=== PATIENT | male | born 1945 | race Caucasian/White ===

== ENCOUNTER → 2018-11-28 12:31 | Outpatient (CLI) | payer MEDICARE, OTHER, SELFPAY ==
--- NOTE | 2018-11-28 | DI.MRI.S_ITS ---
PROCEDURE: MR SHOULDER LT WO/W CON INDICATIONS: LEFT SHOULDER PAIN TECHNIQUE: Noncontrast oblique coronal T1 spin echo and T2 fast spin echo with fat saturation, oblique sagittal T1 spin echo and T2 fast spin echo with fat saturation, axial T1 spin echo and T2 fast spin echo with fat saturation through the shoulder. Post-contrast oblique coronal, oblique sagittal, and axial T1 spin echo with fat saturation through the shoulder. COMPARISON: None. FINDINGS: Image quality: Excellent. Rotator cuff: There is full-thickness rupture of anterior fibers of distal supraspinatus at its insertion on greater tuberosity of humeral head with minimal 7 to 8mm medial retraction of torn tendon fibers. Moderate articular surface partial-thickness tear involving more posterior fibers of distal supraspinatus is seen extending to the musculotendinous junction. Tendinosis and low-grade articular surface partial-thickness tear involving the infraspinatus is seen. Tendinosis and low-grade intrasubstance partial thickness involving distal subscapularis is also noted. Sagittal images demonsterate very mild supraspinatus muscle atrophy. Bones and bursae: No suspicious bone marrow enhancement. Mild glenohumeral joint osteoarthritis is seen. Widened acromioclavicular joint space with moderate amount of joint fluid is seen. No gross marrow edema. No fracture or dislocation. No gross bone erosive changes. Capsule and soft tissues: No suspicious soft tissue enhancement. In the absence of intra-articular contrast, the labrum and glenohumeral ligaments appear intact. The long head of the biceps tendon demonstrates normal location and morphology. The rotator interval appears normal, without fibrosis. The coracohumeral ligament is normal in thickness. IMPRESSION: 1. Full-thickness rupture of the anterior fibers of distal supraspinatus at its insertion on the greater tuberosity with minimal 7 to 8mm medial retraction of torn tendon fibers. Moderate grade articular surface partial thickness involving more posterior fibers of distal supraspinatus. Tendinosis and low-grade articular surface partial-thickness tear involving the supraspinatus. Tendinosis and low-grade intrasubstance partial-thickness tear involving distal subscapularis. Very mild supraspinatus muscle atrophy. 2. Slightly widened acromioclavicular joint space with moderate amount of joint effusion, no fracture or dislocation. No intra-articular loose body. No bony erosive changes. Finding may represent prior surgery in this area suggest clinical correlation. Mild glenohumeral joint osteoarthritis is seen. 3. No gross focal labral tear. Dictated by: Kyle Long M.D. on 11/28/2018 at 15:52 Approved by: Kyle Long M.D. on 11/28/2018 at 16:21
== END ==
PROVIDERS: Family Provider Family Medicine; PCP Family Medicine; Visit Provider Family Medicine
DX: M25.512 Pain in left shoulder (principal)
CPT/HCPCS: 73223; A9579

== ENCOUNTER → 2019-11-10 13:48 | Outpatient (CLI) | payer MEDICARE, OTHER, SELFPAY ==
--- NOTE | 2019-11-10 13:51 | DI.MRI.S_ITS ---
PROCEDURE: MR HEAD/BRAIN WO/W CON INDICATIONS: Hx of multiple concussions, now possible CTE TECHNIQUE: Noncontrast axial T1 spin echo, axial T2 fast spin echo, sagittal and axial FLAIR, coronal T2 fast spin echo, axial gradient echo, axial diffusion and ADC through the brain. After the administration of contrast, axial and coronal 3D VIBE or T1 spin echo with fat saturation through the brain. COMPARISON: None. FINDINGS: Image quality: Excellent. CSF Spaces: Basal cisterns are patent. No extra-axial fluid collections. Ventricles are normal in size and shape. Brain: No midline shift. No intracranial bleeds or masses. No abnormal intracranial enhancement. The brainstem appears normal. Diffusion-weighted images demonstrate no acute ischemic insults. Chronic right temporal infarcts with surrounding gliosis are noted. There is [id number] diffuse cerebral and loss. There are mild periventricular and subcortical white matter chronic microvascular ischemic changes. Normal intravascular flow voids are present. Skull and face: Calvarial marrow is normal in signal. Orbits appear normal. Sinuses: Sinuses and mastoids appear clear. IMPRESSION: 1. No acute intracranial disease process. 2. No areas of acute infarction. 3. Chronic right temporal infarcts with surrounding gliosis. 4. Mild to moderate diffuse cerebral volume loss. 5. Mild periventricular and subcortical white matter chronic microvascular ischemic changes. 6. No suspicious postcontrast enhancement. Dictated by: Dayami Hermosillo MD, PhD on 11/10/2019 at 17:13 Approved by: Dayami Hermosillo MD, PhD on 11/10/2019 at 17:18
== END ==
PROVIDERS: PCP Family Medicine; Visit Provider Psychiatry & Neurology Psychiatry
DX: F07.81 Postconcussional syndrome (principal); E11.9 Type 2 diabetes mellitus without complications; G93.89 Other specified disorders of brain; I63.9 Cerebral infarction, unspecified; F31.81 Bipolar II disorder; F90.0 Attention-deficit hyperactivity disorder, predominantly inattentive type
CPT/HCPCS: 70553; A9579

== ENCOUNTER → 2020-01-05 07:50 | Outpatient (CLI) | payer MEDICARE, OTHER, SELFPAY ==
[2020-01-05 08:40] LABS: Ur Creatinine Normal (Normal); Ur Specific Gravity Normal (Normal); Urine pH Normal (Normal)
[2020-01-05 08:41] LABS: UR Morphine/Opiate cutoff 300 Negative (Negative); Urine Amphetamines Negative (Negative); Urine Barbiturates Negative (Negative); Urine Benzodiazepines Negative (Negative); Urine Cocaine Negative (Negative); Urine MDMA Negative (Negative); Urine Methadone Negative (Negative); Urine Methamphetamines Negative (Negative); Urine Oxycodone Negative (Negative); Urine Phencyclidine Negative (Negative); Urine Tetrahydrocannabinol Negative (Negative); Urine Tricyclic Antidepressant Positive (Negative)
[2020-01-05 09:33] LABS: Add Manual Diff / Slide Review NO; Basophils Absolute Auto 100 /uL (0-100); Basophils Percent Auto 1.1 % (0-2); Eosinophils Absolute Auto 400 /uL (0-450); Eosinophils Percent Auto 6.7 % (2-4); Hematocrit 45.3 % (41-53); Hemoglobin 15.4 g/dL (13.5-17.5); Lymphocytes Absolute Auto 1900 /uL (1100-4500); Mean Corpuscular HGB Conc 34.1 % (30-36); Mean Corpuscular Hemoglobin 34.3 PG (26-34); Mean Corpuscular Volume 100.8 fL (80-100); Monocytes Absolute Auto 1200 /uL (0-900); Monocytes Percent Auto 18.1 % (3-14); Neutrophils Absolute Auto 2900 /uL (1500-7000); Neutrophils Percent Auto 45.1 % (50-75); Platelet Count 240 X10^3/uL (150-400); Red Cell Distribution Width 13.2 % (11.6-14.8); White Blood Cell Count 6.4 X10^3/uL (4.5-11.0)
[2020-01-05 09:40] LABS: Alanine Aminotransferase 20 IU/L (<50); Albumin 4.3 g/dL (3.5-5.0); Albumin Globulin Ratio 1.3 (1.0-2.8); Alkaline Phosphatase 89 U/L (38-126); Aspartate Aminotransferase 23 IU/L (17-59); BUN Creatinine Ratio 14.7 (6-22); Bilirubin Total 0.4 mg/dL (0.2-1.3); Blood Urea Nitrogen 22 mg/dL (9-20); Calcium 9.1 mg/dL (8.4-10.2); Carbon Dioxide 22 mmol/L (22-32); Chloride 108 mmol/L (98-107); Estimated Glomerular Filt Rate 45.7 mL/min (>60); Globulin 3.3 g/dL (1.7-4.1); Glucose 102 mg/dL (80-110); HEMOLYSIS 20 (0-50); Potassium 4.6 mmol/L (3.4-5.1); Sodium 141 mmol/L (137-145); Total Protein 7.6 g/dL (6.3-8.2)
[2020-01-05 10:01] LABS: Hemoglobin A1C% w Est Avg Glu 6.2 % (4.0-6.0)
[2020-01-05 10:43] LABS: Free T4, Direct Thyroxine 0.87 ng/dL (0.78-2.19)
[2020-01-05 10:57] LABS: Thyroid Stimulating Hormone 3.07 uIU/mL (0.47-4.68)
[2020-01-09 14:58] LABS: Valproic Acid (Depakene) Total 18.9 mg/L (50.0-100.0)
== END ==
PROVIDERS: PCP Family Medicine; Referring Provider Psychiatry & Neurology Psychiatry; Visit Provider Psychiatry & Neurology Psychiatry
DX: E11.9 Type 2 diabetes mellitus without complications (principal); F07.81 Postconcussional syndrome; F31.81 Bipolar II disorder; F90.0 Attention-deficit hyperactivity disorder, predominantly inattentive type
CPT/HCPCS: 80053; 80164; 80305; 83036; 84439; 84443; 85025

== ENCOUNTER 2020-04-05 12:28 | Emergency (ER) | payer MEDICARE, OTHER, SELFPAY ==
[2020-04-05 12:30] VITALS: BP 198/96; PULSE 81; RESP 14; TEMP 36.2; O2SAT 98; BMI 32.3
--- NOTE | 2020-04-05 12:39 | PC.NURSE ---
calm , cooperative and appropriate with care, with good eye contact, skin warm dry pink, moving all ext well. son at bs.
--- NOTE | 2020-04-05 13:08 | DI.MRI.S_ITS ---
PROCEDURE: MR HEAD/BRAIN WO/W CON INDICATIONS: Altered mental status TECHNIQUE: Noncontrast axial T1 spin echo, axial T2 fast spin echo, sagittal and axial FLAIR, coronal T2 fast spin echo, axial gradient echo, axial diffusion and ADC through the brain. After the administration of contrast, axial and coronal T1 spin echo with fat saturation through the brain. COMPARISON: [facility], , MR HEAD/BRAIN WO/W CON, 11/10/2019, 14:07. FINDINGS: Image quality: There is susceptibility artifact related to the patient's dental work.3 CSF spaces: Basal cisterns are patent. No extra-axial fluid collections. Ventricles are stable in size and shape, with mild ex vacuo dilatation seen of the temporal horn of the right lateral ventricle. Brain: No midline shift. No intracranial bleeds or masses. No abnormal intracranial enhancement. There is cerebral volume loss for age. There is periventricular white matter chronic small vessel ischemic change. The brainstem appears normal. Diffusion-weighted images demonstrate no acute ischemic insults. Remote infarctions are seen involving the right temporal lobe, with volume loss and gliotic change. Normal intravascular flow voids are present. Skull and face: Calvarial marrow is normal in signal. Orbits appear normal. Sinuses: Sinuses and mastoids appear clear. IMPRESSION: No findings of acute or subacute infarction can be seen. Stable right temporal lobe infarction, with associated volume loss, gliotic change, and ex vacuo dilatation of the temporal horn of the right lateral ventricle. Note is made of age-appropriate brain parenchymal volume loss and chronic small vessel ischemic changes. No masses or abnormal enhancement can be seen. Dictated by: Alok Oconnell M.D. on 04/05/2020 at 13:35 Approved by: Alok Oconnell M.D. on 04/05/2020 at 13:37
[2020-04-05 13:17] LABS: Add Manual Diff / Slide Review NO; Basophils Absolute Auto 0 /uL (0-100); Basophils Percent Auto 0.6 % (0-2); Eosinophils Absolute Auto 200 /uL (0-450); Eosinophils Percent Auto 3.1 % (2-4); Hematocrit 47.6 % (41-53); Hemoglobin 16.3 g/dL (13.5-17.5); Lymphocytes Absolute Auto 1500 /uL (1100-4500); Mean Corpuscular HGB Conc 34.3 % (30-36); Mean Corpuscular Hemoglobin 34.3 PG (26-34); Monocytes Absolute Auto 1200 /uL (0-900); Monocytes Percent Auto 17.3 % (3-14); Neutrophils Absolute Auto 3900 /uL (1500-7000); Platelet Count 204 X10^3/uL (150-400); Red Blood Cell Count 4.76 X10^6/uL (4.5-5.9); Red Cell Distribution Width 13.4 % (11.6-14.8); White Blood Cell Count 6.9 X10^3/uL (4.5-11.0)
--- NOTE | 2020-04-05 13:25 | ED_ITS ---
HPI - Altered Mental Status General Chief Complaint: Altered Mental Status Stated Complaint: Mental status changes Time Seen by Provider: 04/05/20 12:36 Source: patient, family (Son) and other (Patient's psychiatrist Dr. payne) Mode of arrival: Ambulatory Limitations: no limitations History of Present Illness HPI narrative: Patient brought in by his psychiatrist from the office Dr. Payne, accompanied by his son, due to rapid altered mental status in the past 2 months. Patient has been combative and very volatile. At times patient states he wants to harm himself by driving a truck off a bridge. Other times he says he does not want hurt himself. He has had auditory hallucinations hearing men's voices in a quartet. There is no radio on. No visual hallucinations. Past history of bipolar disease. Patient has recently been alternating being compliant to noncompliance. At this time he has stated he has had thoughts of driving his truck off a bridge. Suicide watch orders implemented. I spoke with Dr. Payne, if patient needs medication for anxiety or agitation then use Haldol with Ativan. Dr. payne and son desired patient to be admitted to a Neurogeripsych facility Related Data Home Medications Medication Instructions Recorded Confirmed gemfibrozil 600 mg PO BIDAC #0 12/23/17 04/05/20 glipizide [Glucotrol XL] 2.5 mg PO QDAY #0 12/23/17 04/05/20 cholecalciferol (vitamin D3) 25 9,000 unit PO QWEEK cap 12/03/19 04/05/20 mcg (1,000 unit) capsule imipramine pamoate 100 mg capsule 100 mg PO BEDTIME #0 cap 12/03/19 04/05/20 losartan 100 mg tablet 100 mg PO DAILY #0 tab 12/03/19 04/05/20 prazosin 1 mg capsule 1 mg PO BEDTIME #0 cap 12/03/19 04/05/20 Previous Rx's Medication Instructions Recorded divalproex 500 mg tablet,extended 1,000 mg PO DAILY #60 tab 02/02/20 release 24 hr gabapentin 300 mg capsule 300 mg PO TID #90 cap 02/02/20 Allergies Allergy/AdvReac Type Severity Reaction Status Date / Time shellfish derived Allergy Unknown Verified 04/05/20 12:40 [SHELLFISH DERIVED] Review of Systems Review of Systems Narrative: GENERAL: Denies chills, fatigue, malaise, fever, sweats. HEENT: Denies sinus pain, ear pain, sore throat, difficulty swallowing, dizziness. RESPIRATORY: Denies dyspnea, cough, wheezing, hemoptysis, sputum. CARDIOVASCULAR: Denies chest pain, palpitations, orthopnea, edema, GASTROINTESTINAL: Denies nausea, vomiting, abdominal pain, diarrhea, constipation, melena. : Denies dysuria, frequency, incontinence, hematuria, urinary retention. MUSCULOSKELETAL: denies weakness, joint pain, or bony pain SKIN: Denies rash, skin lesions, or other NEUROLOGIC: Denies weakness, headache, numbness, change in speech, confusion, seizures, incoordination. PSYCHIATRIC: has agitation/anxiety/delusions/auditory hallucinations ROS Unobtainable: All systems reviewed & are unremarkable except as noted in HPI and below Patient History Medical History ADHD (attention deficit hyperactivity disorder), inattentive type (Acute) Bipolar II disorder with atypical features (Acute) CTE (chronic traumatic encephalopathy) (Acute) Diabetes mellitus type 2 in nonobese (Acute) Hypertension (Acute) Posttraumatic stress disorder with delayed expression (Acute) Social History Smoking Status: Never smoker Smoking Status: Never smoker Exam Narrative Exam Narrative: GENERAL: patient appears stated age. Well-nourished, well- developed patient, in no distress, not toxic HEAD: Atraumatic. Normocephalic. EYES: Pupils equal round and reactive. Extraocular motions intact. No scleral icterus. No injection or drainage. ENT: Nose without bleeding, purulent drainage. Throat without erythema, tonsillar hypertrophy or exudate. Airway patent. NECK: Trachea midline. Non tender CARDIOVASCULAR: Regular rate and rhythm without murmurs, gallops, or rubs. RESPIRATORY: Clear to auscultation. Breath sounds equal bilaterally. No wheezes, rales, or rhonchi. GASTROINTESTINAL: Abdomen soft, non-tender, nondistended. EXTREMITIES: No edema or joint tenderness. BACK: Nontender without deformity or crepitance. No flank tenderness. NEURO: AOx3. Clear speech no facial droop. Steady suffocating hallway no ataxia. Strong equal tower attendant. SKIN: No rash or erythema of visible areas Mental exam... Patient is awake alert oriented x4. Patient is cooperative and not combative. No active auditory or visual hallucinations. Does state he would hurt himself by driving over bridge with his truck. Denies any thoughts of hurting others. Initial Vital Signs Initial Vital Signs: Vital Signs Temperature 97.2 F L 04/05/20 12:30 Pulse Rate 81 04/05/20 12:30 Respiratory Rate 14 04/05/20 12:30 Blood Pressure 198/96 H 04/05/20 12:30 Pulse Oximetry 98 04/05/20 12:30 Course Course Course Narrative: Time 6:05 p.m.. The sign-out Dr. Gonzalez,,, dispo pending social Work finding placement for patient. Patient is on suicide watch. Son is at bedside and has been very helpful with patient being less anxious. Orders Ordered: ED Orders 04/05/20 12:41 Urinalysis and Microscopic Stat Urine Drug Screen, Rapid Stat 04/05/20 12:59 EKG-12 Lead Stat 04/05/20 13:00 Consult to [facility] - Material Spreader Urgent Acetaminophen Stat Complete Blood Count AUTO DIFF Stat Comprehensive Metabolic Panel Stat Ethanol (ETOH) Stat Salicylate Stat Thyroid Stimulating Hormone Stat 04/05/20 13:08 MR head/brain wo/w con Stat 04/05/20 14:20 Valproic Acid (Depakene) Total Stat Consultations Consultation #1: [employer] INSPECTOR janiya here for eval of pt Vital Signs Vital signs: Vital Signs - 8 hr 04/05/20 12:30 04/05/20 14:18 Temperature 97.2 F L Pulse Rate 81 78 Respiratory Rate 14 16 Blood Pressure 198/96 H Blood Pressure [Left Arm] 159/88 H Pulse Oximetry 98 99 MDM - Altered Mental Status Differential Diagnosis Differential diagnosis: Likely altered mental status, delirium and dementia Lab Data Result diagrams: 04/05/20 13:00 04/05/20 13:00 Labs: Lab Results 04/05/20 04/05/20 04/05/20 Range/Units 12:41 12:41 13:00 WBC 6.9 (4.5-11.0) X10^3/uL RBC 4.76 (4.5-5.9) X10^6/uL Hgb 16.3 (13.5-17.5) g/dL Hct 47.6 (41-53) % MCV 100.0 (80-100) fL MCH 34.3 H (26-34) PG MCHC 34.3 (30-36) % RDW 13.4 (11.6-14.8) % Plt Count 204 (150-400) X10^3/uL Neut % (Auto) 57.0 (50-75) % Lymph % (Auto) 22.0 L (25-40) % [place] % (Auto) 17.3 H (3-14) % Eos % (Auto) 3.1 (2-4) % Baso % (Auto) 0.6 (0-2) % Neut # (Auto) 3900 (2812-6058) /uL Lymph # (Auto) 1500 (7153-0515) /uL [place] # (Auto) 1200 H (0-900) /uL Eos # (Auto) 200 (0-450) /uL Baso # (Auto) 0 (0-100) /uL Sodium (137-145) mmol/L Potassium Chloride (98-107) mmol/L Carbon Dioxide (22-32) mmol/L BUN (9-20) mg/dL Creatinine (0.66-1.25) mg/dL Estimated GFR (>60) mL/min BUN/Creatinine Ratio (6-22) Glucose (80-110) mg/dL Calcium (8.4-10.2) mg/dL Total Bilirubin (0.2-1.3) mg/dL AST (17-59) IU/L ALT (<50) IU/L Alkaline Phosphatase (38-126) U/L Total Protein (6.3-8.2) g/dL Albumin (3.5-5.0) g/dL Globulin (1.7-4.1) g/dL Albumin/Globulin Ratio (1.0-2.8) TSH (0.47-4.68) uIU/mL Urine Color Yellow Urine Appearance Clear Urine pH 6.5 (4.5-8.0) Ur Specific [place] 1.020 (1.000-1.035) Urine Protein Trace H (Negative) Urine Glucose (UA) Negative (Negative) g/dL Urine Ketones Trace H (NEGATIVE) Urine Occult Blood Negative (Negative) Urine Nitrate Negative (Negative) Urine Bilirubin Negative (NEGATIVE) Urine Urobilinogen 0.2 (0.2) E.U./dL Ur Leukocyte Esterase Negative (NEGATIVE) Urine RBC None seen (0-5/HPF) Urine WBC None seen (0-5/HPF) Urine Bacteria None seen (None) Ur Culture Indicated? Cult not indicated Micro UA Comment Microscopic normal Salicylates (<20) mg/dL U Opiates 300ng/mL cut Negative (Negative) Ur Oxycodone Screen Negative (Negative) Urine Methadone Screen Negative (Negative) Acetaminophen (10-30) ug/mL Ur Barbiturates Screen Negative (Negative) U Tricyclic Antidepress Positive H (Negative) Ur Phencyclidine Scrn Negative (Negative) Ur Amphetamines Screen Negative (Negative) U Methamphetamines Scrn Negative (Negative) Ur MDMA Scrn (Ecstasy) Negative (Negative) U Benzodiazepines Scrn Negative (Negative) Urine Cocaine Screen Negative (Negative) U Marijuana (THC) Screen Negative (Negative) Ethyl Alcohol ( - 10) mg/dL 04/05/20 04/05/20 Range/Units 13:00 13:00 WBC (4.5-11.0) X10^3/uL RBC (4.5-5.9) X10^6/uL Hgb (13.5-17.5) g/dL Hct (41-53) % MCV (80-100) fL MCH (26-34) PG MCHC (30-36) % RDW (11.6-14.8) % Plt Count (150-400) X10^3/uL Neut % (Auto) (50-75) % Lymph % (Auto) (25-40) % [place] % (Auto) (3-14) % Eos % (Auto) (2-4) % Baso % (Auto) (0-2) % Neut # (Auto) (4958-8148) /uL Lymph # (Auto) (3928-8703) /uL [place] # (Auto) (0-900) /uL Eos # (Auto) (0-450) /uL Baso # (Auto) (0-100) /uL Sodium 139 (137-145) mmol/L Potassium TNP Chloride 108 H (98-107) mmol/L Carbon Dioxide 19 L (22-32) mmol/L BUN 28 H (9-20) mg/dL Creatinine 1.50 H (0.66-1.25) mg/dL Estimated GFR 45.7 L (>60) mL/min BUN/Creatinine Ratio 18.7 (6-22) Glucose 82 (80-110) mg/dL Calcium 9.3 (8.4-10.2) mg/dL Total Bilirubin 0.8 (0.2-1.3) mg/dL AST 52 (17-59) IU/L ALT 53 H (<50) IU/L Alkaline Phosphatase 87 (38-126) U/L Total Protein 8.1 (6.3-8.2) g/dL Albumin 4.5 (3.5-5.0) g/dL Globulin 3.6 (1.7-4.1) g/dL Albumin/Globulin Ratio 1.3 (1.0-2.8) TSH 0.58 (0.47-4.68) uIU/mL Urine Color Urine Appearance Urine pH (4.5-8.0) Ur Specific [place] (1.000-1.035) Urine Protein (Negative) Urine Glucose (UA) (Negative) g/dL Urine Ketones (NEGATIVE) Urine Occult Blood (Negative) Urine Nitrate (Negative) Urine Bilirubin (NEGATIVE) Urine Urobilinogen (0.2) E.U./dL Ur Leukocyte Esterase (NEGATIVE) Urine RBC (0-5/HPF) Urine WBC (0-5/HPF) Urine Bacteria (None) Ur Culture Indicated? Micro UA Comment Salicylates < 1.0 (<20) mg/dL U Opiates 300ng/mL cut (Negative) Ur Oxycodone Screen (Negative) Urine Methadone Screen (Negative) Acetaminophen < 10 L (10-30) ug/mL Ur Barbiturates Screen (Negative) U Tricyclic Antidepress (Negative) Ur Phencyclidine Scrn (Negative) Ur Amphetamines Screen (Negative) U Methamphetamines Scrn (Negative) Ur MDMA Scrn (Ecstasy) (Negative) U Benzodiazepines Scrn (Negative) Urine Cocaine Screen (Negative) U Marijuana (THC) Screen (Negative) Ethyl Alcohol < 10 ( - 10) mg/dL Imaging Data MRI brain: Radiologist's Impression: [address] [address] Magnetic Resonance Report Signed Patient: Zen Aguayo [facility]#: [id number] : 5Acct:[id number] Age/Sex: 74 / MDate of Service: 04/05/20 Loc: ED Accession Number: [id number] Procedure: MR head/brain wo/w con Ordering Provider: Everardo Ortiz MD PROCEDURE: MR HEAD/BRAIN WO/W CON INDICATIONS: Altered mental status TECHNIQUE: Noncontrast axial T1 spin echo, axial T2 fast spin echo, sagittal and axial FLAIR, coronal T2 fast spin echo, axial gradient echo, axial diffusion and ADC through the brain. After the administration of contrast, axial and coronal T1 spin echo with fat saturation through the brain. COMPARISON: [facility], MR, MR HEAD/BRAIN WO/W CON, 11/10/2019, 14:07. FINDINGS: Image quality: There is susceptibility artifact related to the patient's dental work.3 CSF spaces: Basal cisterns are patent. No extra-axial fluid collections. Ventricles are stable in size and shape, with mild ex vacuo dilatation seen of the temporal horn of the right lateral ventricle. Brain: No midline shift. No intracranial bleeds or masses. No abnormal int racranial enhancement. There is cerebral volume loss for age. There is periventricular white matter chronic small vessel ischemic change. The brainstem appears normal. Diffusion-weighted images demonstrate no acute ischemic insults. Remote infarctions are seen involving the right temporal lobe, with volume loss and gliotic change. Normal intravascular flow voids are present. Skull and face: Calvarial marrow is normal in signal. Orbits appear normal. Sinuses: Sinuses and mastoids appear clear. IMPRESSION: No findings of acute or subacute infarction can be seen. Stable right temporal lobe infarction, with associated volume loss, gliotic change, and ex vacuo dilatation of the temporal horn of the right lateral ventricle. Note is made of age-appropriate brain parenchymal volume loss and chronic small vessel ischemic changes. No masses or abnormal enhancement can be seen. Dictated by: Alok Oconnell M.D. on 04/05/2020 at 13:35 Approved by: Alok Oconnell M.D. on 04/05/2020 at 13:37 ECG Data Attestation: I personally reviewed and interpreted this ECG as follows: Interpretation: Time 1:23 p.m.. Sinus rhythm, first-degree AV block, vent ricular rate 81 Discharge Plan Departure Clinical Impression: Acute on chronic alteration in mental status Prescriptions: No Action cholecalciferol (vitamin D3) 1,000 unit capsule 9,000 unit PO QWEEK RF: 0 divalproex 500 mg tablet extended release 24 hr 1,000 mg PO DAILY Qty: 60 RF: 5 gabapentin [Neurontin] 300 mg capsule 300 mg PO TID Qty: 90 RF: 5 gemfibrozil 600 MG tablet 600 mg PO BIDAC Qty: 0 RF: 0 glipizide [Glucotrol XL] 2.5 MG tablet extended release 24hr 2.5 mg PO QDAY Qty: 0 RF: 0 imipramine pamoate 100 mg capsule 100 mg PO BEDTIME Qty: 0 RF: 0 losartan [Cozaar] 100 mg tablet 100 mg PO DAILY Qty: 0 RF: 0 prazosin [Minipress] 1 mg capsule 1 mg PO BEDTIME Qty: 0 RF: 0 Referrals: Buddy Cook DO [Primary Care Provider] -
[2020-04-05 13:29] LABS: Acetaminophen < 10 ug/mL (10-30); Alanine Aminotransferase 53 IU/L (<50); Albumin 4.5 g/dL (3.5-5.0); Albumin Globulin Ratio 1.3 (1.0-2.8); Alkaline Phosphatase 87 U/L (38-126); Aspartate Aminotransferase 52 IU/L (17-59); BUN Creatinine Ratio 18.7 (6-22); Bilirubin Total 0.8 mg/dL (0.2-1.3); Blood Urea Nitrogen 28 mg/dL (9-20); Calcium 9.3 mg/dL (8.4-10.2); Carbon Dioxide 19 mmol/L (22-32); Chloride 108 mmol/L (98-107); Estimated Glomerular Filt Rate 45.7 mL/min (>60); Ethanol (ETOH) < 10 mg/dL; Globulin 3.6 g/dL (1.7-4.1); Glucose 82 mg/dL (80-110); Salicylate < 1.0 mg/dL (<20); Sodium 139 mmol/L (137-145); Total Protein 8.1 g/dL (6.3-8.2)
[2020-04-05 13:30] LABS: HEMOLYSIS 111 (0-50)
[2020-04-05 14:00] LABS: Thyroid Stimulating Hormone 0.58 uIU/mL (0.47-4.68)
[2020-04-05 14:00] LABS: Bacteria Urine None Seen; RBC Urine None Seen (0-5/HPF); WBC Urine None Seen (0-5/HPF)
[2020-04-05 14:02] LABS: Appearance Urine UA CLEAR; Bilirubin Urine UA NEGATIVE (NEGATIVE); Color Urine UA YELLOW; Glucose Urine UA NEGATIVE (Negative); Ketones Urine UA TRACE (NEGATIVE); Leukocyte Esterase Urine UA NEGATIVE (NEGATIVE); Nitrite Urine UA NEGATIVE (Negative); Occult Blood Urine UA NEGATIVE (Negative); Protein Urine UA TRACE (Negative); Urobilinogen Urine UA 0.2 E.U./dL (0.2); pH Urine UA 6.5 (4.5-8.0)
[2020-04-05 14:06] LABS: UR Morphine/Opiate cutoff 300 Negative (Negative); Ur Creatinine Normal (Normal); Ur Specific Gravity Normal (Normal); Urine Amphetamines Negative (Negative); Urine Barbiturates Negative (Negative); Urine Benzodiazepines Negative (Negative); Urine Cocaine Negative (Negative); Urine MDMA Negative (Negative); Urine Methadone Negative (Negative); Urine Methamphetamines Negative (Negative); Urine Oxycodone Negative (Negative); Urine Phencyclidine Negative (Negative); Urine Tetrahydrocannabinol Negative (Negative); Urine Tricyclic Antidepressant Positive (Negative); Urine pH Normal (Normal)
[2020-04-05 14:07] LABS: Culture Indicated Urine Cult Not Indicated; Urine Comments Microscopic Normal
[2020-04-05 14:18] VITALS: BP 159/88; PULSE 78; RESP 16; O2SAT 99
--- NOTE | 2020-04-05 15:37 | CM.SWNOTE ---
ROADS SUPERINTENDENT note ROADS SUPERINTENDENT staffed patient with Dr. Ortiz. ROADS SUPERINTENDENT attempted to contact Dr. Hutchinson, patient's psychiatrist to gain better understanding of background and current situation. Left message with dental office receptionist. ANTONIO Nam
--- NOTE | 2020-04-05 18:16 | CM.SWNOTE ---
ANAESTHESIOLOGIST note ANAESTHESIOLOGIST meets with patient in room. ANAESTHESIOLOGIST consults with Dr. Hutchinson, who recommends behavioral health hospitalization. Patient's son is in waiting room and ANAESTHESIOLOGIST asks patient for permission to speak with patient's son. Patient gives verbal consent for ANAESTHESIOLOGIST to speak with son. Patient's son discusses a significant change in patient's behavior over the past week and states significant concern for safety of patient and of patient's , and provides several examples (see assessment). Patient's son believes that his father is unsafe to be released home. ANAESTHESIOLOGIST staffs with Dr. Ortiz and Dr. Hutchinson and all express agreement that patient is currently unsafe for release to home. ANAESTHESIOLOGIST will discuss with patient and begin persuing hospitalization for geriatric psych hospitalization. ANTONIO Nam
--- NOTE | 2020-04-05 18:42 | CM.SWNOTE ---
OUTSIDE MACHINIST SUPERVISOR note OUTSIDE MACHINIST SUPERVISOR enters room to talk with patient. OUTSIDE MACHINIST SUPERVISOR explains that it is the belief of OUTSIDE MACHINIST SUPERVISOR that patient is not safe for discharge home, and that the recommendation is for inpatient behavioral health hospitalization for patient. After stating this, patient tells OUTSIDE MACHINIST SUPERVISOR you can leave now. OUTSIDE MACHINIST SUPERVISOR reiterates recommendation and explains that the hospital is not located here, and asks specifically if patient is willing to voluntarily accept treatment. Patient says anything can happen. OUTSIDE MACHINIST SUPERVISOR informs patient that, should he be unwilling to accept voluntary placement, he will be considered involuntary, unable to leave, and will have to meet with a DCR. Patient states he does not give consent to OUTSIDE MACHINIST SUPERVISOR. OUTSIDE MACHINIST SUPERVISOR informs patient that his stay is now considered involuntary, and informs RN and Dr. Gonzalez of current involuntary status. OUTSIDE MACHINIST SUPERVISOR will call DCR and follow up with patient's and son following conversation to inform of current status. ANTONIO Nam
[2020-04-05 18:43] VITALS: BP 170/78; PULSE 78; RESP 16; O2SAT 99
--- NOTE | 2020-04-05 18:58 | CM.SWNOTE ---
PHOTO BOOTH OPERATOR note PHOTO BOOTH OPERATOR contacts patient's . PHOTO BOOTH OPERATOR reviews conversations with patient and patient's son with patient's , and informs patient's of patient's involuntary status. Patient's says thank you when PHOTO BOOTH OPERATOR informs patient's that PHOTO BOOTH OPERATOR's opinion is that patient is not safe for discharge home. PHOTO BOOTH OPERATOR explained process of Involuntary hold for patient, and patient's said she called her workers compensation defense attorney and was told she had medical and mental DPOA for patient. PHOTO BOOTH OPERATOR informed patient that he would consult with DCR to see how that impacted process and that DCR and or PHOTO BOOTH OPERATOR would follow up with patient's regarding next steps. plan: PHOTO BOOTH OPERATOR to contact [facility] to request DCR consult. ANTONIO Nam
--- NOTE | 2020-04-05 19:25 | CM.SWNOTE ---
RACING DRIVER note RACING DRIVER calls [facility] crisis line and speaks with Olman to start assessment process. RACING DRIVER gives [facility] information requested and [facility] requests attestation form be sent before proceeding to next step. RACING DRIVER obtained signature from Dr. Gonzalez on attestation form and faxed to A. RACING DRIVER will wait for DCR consult. ANTONIO Nam
--- NOTE | 2020-04-05 19:34 | PC.NURSE ---
Kyle Cedeño on pt bankruptcy paralegal watch @19:30
--- NOTE | 2020-04-05 20:37 | CM.SWNOTE ---
INVESTIGATOR UTILITY BILL COMPLAINTS note DYLAN Simms called INVESTIGATOR UTILITY BILL COMPLAINTS and INVESTIGATOR UTILITY BILL COMPLAINTS returned call. INVESTIGATOR UTILITY BILL COMPLAINTS and DCR discussed patient and INVESTIGATOR UTILITY BILL COMPLAINTS requested clinical packet with contact information for patient's and son. INVESTIGATOR UTILITY BILL COMPLAINTS assembled packet and faxed to DCR. DYLAN Simms phone: [phone]; fax: [phone]. INVESTIGATOR UTILITY BILL COMPLAINTS will await return call from DCR to discuss next steps.
[2020-04-05 21:05] VITALS: BP 181/88; PULSE 78; RESP 16; O2SAT 95
[2020-04-05] MEDS: DIVALPROEX ER 250 MG TAB 500 MG PO (21:08)
[2020-04-05] MEDS: PRAZOSIN 1 MG CAPSULE PO (21:08)
[2020-04-05] MEDS: GABAPENTIN 300 MG CAPSULE PO (21:08)
[2020-04-05] MEDS: IMIPRAMINE HCL 25 MG TABLET 100 MG PO (21:09)
--- NOTE | 2020-04-05 21:48 | PC.NURSE ---
Prt speaking with DCR via Tablet.
--- NOTE | 2020-04-05 21:58 | CM.SWNOTE ---
COUNTY DEMONSTRATOR note COUNTY DEMONSTRATOR called DCR and coordinated Zoom meeting. COUNTY DEMONSTRATOR brought iPad to patient and patient and DCR completed meeting. COUNTY DEMONSTRATOR retrieved iPad when finished. COUNTY DEMONSTRATOR then called DCR who said that he would likely have to gather more information from and son because he did not feel that patient was good taras due to the reported challenges with hearing the DCR through the iPad. Plan: DCR will call and son, and follow up with hospital staff regarding next steps. COUNTY DEMONSTRATOR will contact DCR prior to end of shift if no contact is made by 2330. ANTONIO Nam
--- NOTE | 2020-04-05 22:30 | PC.NURSE ---
Per Kyle ALVAREZ, patient is now being made GURMEET and DCR is coming.
--- NOTE | 2020-04-05 22:51 | PC.NURSE ---
Belia's sister Jennifer: [phone] Son Marlon: [phone]
--- NOTE | 2020-04-05 23:30 | CM.SWNOTE ---
GRANITE CUTTER note GRANITE CUTTER receives call from DCR and sets up Zoom meeting with DCR and patient. DCR informs patient that DCR is placing a 72 hour hold on patient. DCR explains that he will be seeking placement for patient throughout the night, and that he will be contacting the RN on duty for assistance in faxing the hospital's documents to potential placement sites. GRANITE CUTTER gave clinical paperwork and contact information for DCR to RN Shahrzad and explained that DCR would be coordinating with her throughout evening. GRANITE CUTTER updated Dr. Gonzalez on detainment status. Plan: DCR to seek and secure GURMEET bed for patient ANTONIO Nam
[2020-04-06 02:44] LABS: COVID19 -Nasal RAPID Negative (Negative)
[2020-04-06 03:36] LABS: Valproic Acid (Depakene) Total 43 ug/mL (50-100)
[2020-04-06 06:09] VITALS: BP 164/82; PULSE 81; RESP 18; O2SAT 97
--- NOTE | 2020-04-06 07:51 | PC.NURSE ---
Patient is sleeping. Chest rise and fall observed
--- NOTE | 2020-04-06 08:10 | PC.NURSE ---
Gave Jael LOVE with [facility] report
[2020-04-06 08:11] VITALS: BP 163/81; PULSE 81; RESP 18; O2SAT 95
--- NOTE | 2020-04-06 08:29 | PC.NURSE ---
Gave report to Margaret at [facility]
== END 2020-04-06 08:16 ==
PROVIDERS: Emergency Medicine; Emergency Provider Emergency Medicine; PCP Family Medicine; Referring Provider Psychiatry & Neurology Psychiatry
DX: R41.82 Altered mental status, unspecified (principal); F31.81 Bipolar II disorder; F90.0 Attention-deficit hyperactivity disorder, predominantly inattentive type; F43.10 Post-traumatic stress disorder, unspecified; F07.81 Postconcussional syndrome; E11.9 Type 2 diabetes mellitus without complications
CPT/HCPCS: 36415; 70553; 80053; 80164; 80305; 80320; 80329; 81001; 84443; 85025; 87635; 93005; 99214; 99285; G0480

== ENCOUNTER → 2020-05-10 14:08 | Outpatient (CLI) | payer MEDICARE, OTHER, SELFPAY ==
[2020-05-10 14:47] LABS: Add Manual Diff / Slide Review NO; Basophils Absolute Auto 100 /uL (0-100); Basophils Percent Auto 0.8 % (0-2); Eosinophils Absolute Auto 400 /uL (0-450); Eosinophils Percent Auto 5.2 % (2-4); Hematocrit 42.1 % (41-53); Hemoglobin 14.1 g/dL (13.5-17.5); Lymphocytes Absolute Auto 1800 /uL (1100-4500); Lymphocytes Percent Auto 26.1 % (25-40); Mean Corpuscular HGB Conc 33.6 % (30-36); Mean Corpuscular Hemoglobin 34.2 PG (26-34); Mean Corpuscular Volume 101.6 fL (80-100); Monocytes Absolute Auto 1100 /uL (0-900); Monocytes Percent Auto 15.7 % (3-14); Neutrophils Absolute Auto 3600 /uL (1500-7000); Neutrophils Percent Auto 52.2 % (50-75); Platelet Count 163 X10^3/uL (150-400); Red Blood Cell Count 4.14 X10^6/uL (4.5-5.9); Red Cell Distribution Width 13.7 % (11.6-14.8)
[2020-05-10 15:30] LABS: Alanine Aminotransferase 21 IU/L (<50); Albumin 3.8 g/dL (3.5-5.0); Albumin Globulin Ratio 1.3 (1.0-2.8); Alkaline Phosphatase 102 U/L (38-126); Aspartate Aminotransferase 30 IU/L (17-59); BUN Creatinine Ratio 20.3 (6-22); Bilirubin Total 0.4 mg/dL (0.2-1.3); Blood Urea Nitrogen 30 mg/dL (9-20); Carbon Dioxide 24 mmol/L (22-32); Chloride 107 mmol/L (98-107); Cholesterol 158 mg/dL (140-199); Estimated Glomerular Filt Rate 46.5 mL/min (>60); Globulin 2.9 g/dL (1.7-4.1); Glucose 204 mg/dL (80-110); HDL Cholesterol 39 mg/dL (40-60); HEMOLYSIS 19 (0-50); LDL Cholesterol Calculated 58 mg/dL (<100); Potassium 4.7 mmol/L (3.4-5.1); Sodium 137 mmol/L (137-145); Total Protein 6.7 g/dL (6.3-8.2); Triglycerides 304 mg/dL (35-150)
[2020-05-11 04:13] LABS: Valproic Acid (Depakene) Total 52 ug/mL (50-100)
== END ==
PROVIDERS: PCP Family Medicine; Referring Provider Psychiatry & Neurology Psychiatry; Visit Provider Psychiatry & Neurology Psychiatry
DX: F07.81 Postconcussional syndrome (principal); F31.81 Bipolar II disorder
CPT/HCPCS: 36415; 80053; 80061; 80164; 85025

== ENCOUNTER → 2020-06-02 18:16 | Outpatient (CLI) | payer MEDICARE, OTHER, SELFPAY ==
--- NOTE | 2020-06-02 18:22 | DI.MRI.S_ITS ---
PROCEDURE: MR LUMBAR SPINE WO CON INDICATIONS: OTHER INTERVERTEBRAL DISC DEGENERATION LUMBAR REG TECHNIQUE: Noncontrast sagittal T1 spin echo and T2 fast echo, sagittal STIR, axial T1 and T2 fast spin echo through the lumbar spine. In cases with scoliosis, additional coronal T2 fast spin echo may be performed. COMPARISON: [facility], , L-SPINE WITHOUT CONTRAST, 09/13/2017, 10:13. FINDINGS: Image quality: Excellent. Alignment and Curvature: There is trace retrolisthesis of L2 on L3 and L5 on S1. Bone Marrow: Marrow is of normal overall signal. Schmorl's nodes with mild reactive endplate change are present along the inferior endplate of L2. Less prominent Schmorl's nodes are noted along the inferior endplate of L1 and superior endplate of L3, old or. No acute vertebral body compression fractures. Spinal Cord: Conus medullaris terminates at the T12-L1 level. Visualized cord demonstrates normal signal and size. Paraspinous Soft Tissues: No paravertebral masses. Renal cysts are present bilaterally. Discs: Moderate desiccation is present throughout the lumbar spine. L1-L2: Minimal disc bulge without spinal stenosis or foraminal narrowing. Facet and ligament flavum hypertrophy. No interval change. L2-L3: Mild disc bulge without spinal stenosis. Mild left and minimal right foraminal narrowing, slightly progressive on the right. Facet and ligamentum flavum hypertrophy are present. L3-L4: Mild disc bulge with mild spinal stenosis. Mild to moderate left and moderate right foraminal narrowing, slightly progressive on the left. Facet and ligamentum flavum hypertrophy are present. L4-L5: Mild disc bulge with mild spinal stenosis. Severe left and moderate to severe right foraminal narrowing with facet and ligamentum flavum hypertrophy. Mild interval progression on the right. L5-S1: Mild disc bulge with mild spinal stenosis. Mild left foraminal narrowing with facet and ligamentum flavum hypertrophy. No interval progression. IMPRESSION: 1. Multiple degenerative changes there is interval progression as above. 2. Foraminal narrowing remains most prominent at L4-5, secondary to facet arthropathy. Dictated by: Elzbieta Martinez M.D. on 06/03/2020 at 13:46 Approved by: Elzbieta Martinez M.D. on 06/03/2020 at 15:07
== END ==
PROVIDERS: PCP Family Medicine; Referring Provider Orthopaedic Surgery; Visit Provider Orthopaedic Surgery
DX: M51.36 Other intervertebral disc degeneration, lumbar region (principal); M47.816 Spondylosis without myelopathy or radiculopathy, lumbar region; M47.817 Spondylosis without myelopathy or radiculopathy, lumbosacral region; M48.061 Spinal stenosis, lumbar region without neurogenic claudication; M48.07 Spinal stenosis, lumbosacral region
CPT/HCPCS: 72148